=== PATIENT | female | born 1980 | race Native Hawaiian/Other Pacific Islander ===

== ENCOUNTER 2022-07-26 10:07 | Emergency (ER) | payer MEDICAID ==
[~2022-07-26] VITALS: Ht 157.5 cm; Wt 82.6 kg
[2022-07-26] MEDS ORDERED: CLINDAMYCIN PHOSPHATE IV 600 MG in IV DEXTROSE 5% 100 ML IV ONE (11:30)
[2022-07-26] MEDS ORDERED: IV NORMAL SALINE 100 ML BAG IV ONE (11:30)
[2022-07-26] MEDS ORDERED: CLINDAMYCIN 600 MG PIGGYBACK**ER OMNI IV ONE (11:40)
[2022-07-26 11:57] LABS: CREATININE 0.8 mg/dL (0.6-1.3); POTASSIUM 3.9 mmol/L (3.5-5.1)
[2022-07-26 11:59] LABS: HEMATOCRIT 39.3 % (31.2-41.9); MEAN CORPUSCULAR HEMOGLOBIN 29.7 uug (24.7-32.8); PLATELET COUNT (AUTO) 267 K/uL (179-408)
--- NOTE | 2022-07-26 12:03 | NUR ---
IV started in left Ac, 22g, flushing well. ABX started, fluids running. pt tolerating well, will continue to monitor.
[2022-07-26 12:10] LABS: BILIRUBIN,TOTAL 0.6 mg/dL (0.2-1.0); TOTAL PROTEIN, SERUM 8.1 g/dL (6.4-8.2)
[2022-07-26] MEDS ORDERED: IV NORMAL SALINE 250 ML IV ONE (12:52)
[2022-07-26] MEDS ORDERED: SWABABLE VALVE TRANSFER SET EA MC ONE (12:52)
[2022-07-26] MEDS ORDERED: IOHEXOL 300MG/ML 100 ML INFUS..BTL ONE (12:52)
--- NOTE | 2022-07-26 14:35 | NUR ---
Patient discharged to home in stable condition. Written and verbal after care instructions given. Patient verbalizes understanding of instructions. Stressed follow up or return to ER for worsening s/s.
--- NOTE | 2022-07-26 14:35 | NUR ---
iv removed, site secured with pressure dressing.
[2022-07-26] MEDS ORDERED: CLIN300C12 PO (14:50)
== END 2022-07-26 14:50 | disposition home or self-care (01) ==
LOC: ER 10:07
DX: K06.9 Disorder of gingiva and edentulous alveolar ridge, unspecified (principal); N39.0 Urinary tract infection, site not specified; R22.9 Localized swelling, mass and lump, unspecified; Z87.892 Personal history of anaphylaxis; Z91.048 Other nonmedicinal substance allergy status
CPT/HCPCS: 99285; 70487; 80053; 85025; 86140; 36415; 96365; J3490; Q9967; J7040; A4663